=== PATIENT | male | born 1960 | race Caucasian/White ===

== ENCOUNTER 2018-11-08 20:26 | Emergency (ER) | payer BC ==
[2018-11-08 21:02] VITALS: BP 127/73
[2018-11-08] MEDS ORDERED: Tetan/Diph/Pertus SYR(Tdap)* 0.5 ML SYR(BOOSTRIX) use SYR IM ONE (21:23)
[2018-11-08] MEDS ORDERED: Ibuprofen TAB* 600 MG PO ONE (21:24)
--- NOTE | 2018-11-08 21:40 | UC ---
Minor Trauma HPI - HPI Summary HPI Summary: 58 year old with history of etoh abuse here after a fall while intoxicated. As per , she heard him fall and found him on the floor, face planted. She found him by the cabinet. As per , patient has etoh abuse history and not seeking help. Multiple falls in the past. He admits to drinking few cans everyday and even driving while intoxicated. He is not complaining of pain over his lips and shoulder pain - History of Current Complaint Chief Complaint: UCGeneralIllness Stated Complaint: S/P FALL RIGHT CELIA PAIN/SWOLLEN LIP Time Seen by Provider: 11/08/18 20:51 Hx Obtained From: Patient, Family/Tourist Agent Onset/Duration: Sudden Onset Onset Of Pain: Immediate Severity Initially: Mild Pain Intensity: 0 Pain Scale Used: 0-10 Numeric Mechanism Of Injury: Fall From A Standing Position Alleviating Factor(s): Nothing - Risk Factors Penetrating Injury Risk Factors: Negative - Allergies/Home Medications Allergies/Adverse Reactions: Allergies Allergy/AdvReac Type Severity Reaction Status Date / Time No Known Allergies Allergy Verified 11/08/18 21:02 Home Medications: Home Medications ALPRAZolam TAB* [Xanax TAB*] 0.25 mg PO BID 11/08/18 [History Confirmed 11/08/18 ] Blood Pressure Medication 1 tab BEDTIME 11/08/18 [History Confirmed 11/08/18] Omeprazole CAP (NF) [Prilosec CAP* 20 MG] 20 mg PO BID 11/08/18 [History Confirmed 11/08/18] amLODIPine TAB* [Norvasc 5 mg TAB*] 5 mg PO BEDTIME 11/08/18 [History Confirmed 11/08/18] PMH/Surg Hx/FS Hx/Imm Hx Previously Healthy: Yes - Surgical History Surgical History: None - Social History Alcohol Use: Daily Alcohol Amount: at least 12 beers daily Substance Use Type: None Smoking Status (MU): Never Smoked Tobacco Review of Systems All Other Systems Reviewed And Are Negative: Yes Constitutional: Positive: Negative Skin: Positive: Negative ENT: Positive: Other - lip swelling Respiratory: Positive: Negative Cardiovascular: Positive: Negative Genitourinary: Positive: Negative Neurological: Positive: Other - intoxicated Psychological: Positive: Negative Is Patient Immunocompromised?: No Physical Exam Triage Information Reviewed: Yes Completion Of Physical Exam Limited Due To: Other - intoxicated Vital Signs: Initial Vital Signs Temp 36.8 C 11/08/18 20:53 Pulse 94 11/08/18 20:53 Resp 18 11/08/18 20:53 BP 127/73 11/08/18 20:53 Pulse Ox 100 11/08/18 20:53 Vital Signs Reviewed: Yes ENT: Positive: Other - No septal hematoma, swelling of upper lip, 1cm laceration over mucosa of upper lip Dental Exam: Normal Respiratory Exam: Normal Cardiovascular Exam: Normal Abdominal Exam: Normal Musculoskeletal: Positive: Other: - Tender to palpation over right scapula, right 5/6th rib No ttp over hand or wrist. FROM shoulder Neurological: Positive: Other: - intoxicated with slurred speech and unsteady gait Skin Exam: Normal Skin: Positive: Other - NO brusing Diagnostics - Radiology No standard instances Radiology Interpretation Completed By: ED Physician Minor Trauma Course/Dx - Course Course Of Treatment: Intoxication with laceration to right upper lip mucosa Tetanus over 10 years Will give tetanus and follow up with XR - Differential Dx/Diagnosis Differential Diagnosis/HQI/PQRI: Abrasion(s), Laceration(s), Other Provider Diagnosis: Intoxication Discharge - Sign-Out/Discharge Documenting (check all that apply): Patient Departure All imaging exams completed and their final reports reviewed: Yes - Discharge Plan Condition: Good Disposition: HOME Patient Education Materials: Alcohol Intoxication (ED), Musculoskeletal Pain ( ED) Print Language: MAORI Referrals: Sherley Rodriguez PA [Primary Care Provider] - - Billing Disposition and Condition Condition: GOOD Disposition: Home
== END 2018-11-08 22:02 | disposition home or self-care (01) ==
LOC: UCCORT 20:26
DX: F10.129 Alcohol abuse with intoxication, unspecified (principal); M25.511 Pain in right shoulder; K13.0 Diseases of lips; R29.898 Other symptoms and signs involving the musculoskeletal system; Z91.81 History of falling; W18.30XA Fall on same level, unspecified, initial encounter; Y92.9 Unspecified place or not applicable
CPT/HCPCS: 71046; 90471; 90715; 99202; A9270-GY; G0463